=== PATIENT | female | born 1960 | race Caucasian/White ===

== ENCOUNTER 2022-10-29 10:21 | Emergency (ER) | payer OTHER, SELFPAY ==
[2022-10-29 10:24] VITALS: BP 181/76; PULSE 103; RESP 18; TEMP 36.7; O2SAT 96; BMI 33.6
--- NOTE | 2022-10-29 10:36 | XR_ITS ---
The [address] [address] Patient Name: SUKHI CADE MRN: [id number] date: 1960 Sex: F Assigned Patient Location: ER Current Patient Location: ER Accession/Order Number: [id number] Exam Date: 10/29/2022 10:48 Report Date: 10/29/2022 11:10 At the request of: MONTANA ALCARAZ Procedure: XR knee RT 4V STUDY: XR knee RT 4V, [id number] HISTORY: fall COMPARISON: None FINDINGS: No acute fracture, dislocation, or suspicious osseous lesion. Severe prepatellar soft tissue swelling. No knee joint effusion. Mild osteophytosis of the knee. Partially visualized intramedullary sajan in the distal femur. XR/XR knee RT 4V IMPRESSION: 1. No acute osseous abnormality. 2. Severe prepatellar soft tissue swelling which could represent either prepatellar bursitis or hemorrhage within the prepatellar bursa. Electronically authenticated by: TOMAS BONNER Date: 10/29/2022 11:10
--- NOTE | 2022-10-29 10:38 | ED.LOWEXI1 ---
HPI - Extremity Injury (Lower) General Chief Complaint: Extremity Injury, Lower Stated Complaint: LOWER EXTREMITY INJURY RIGHT KNEE Time Seen by Provider: 10/29/22 10:35 Source: patient Mode of arrival: Wheelchair Limitations: no limitations History of Present Illness HPI Narrative: patient here for evaluation of right knee injury. She was in her usual state of health today that she stumbled falling forward striking both her knees. She has no discomfort in her left knee or left side or extremity at all her discomfort is directly over the right knee. She was able to walk here to the emergency room but she is walking stifflegged. She has not had previous fractures of the patella or the knee. She does not have any discomfort in the thigh to hip the back or the upper extremities. She has no discomfort in the lower limb. X-rays will be done before final examination. Related Data Home Medications Medication Instructions Recorded Confirmed naproxen sodium 220 mg tablet 220 mg PO BID PRN pain 10/29/22 10/29/22 (Aleve) Allergies Allergy/AdvReac Type Severity Reaction Status Date / Time ciprofloxacin [From Cipro] AdvReac Intermediate Verified 10/29/22 10:30 Sulfa (Sulfonamide AdvReac Intermediate Verified 10/29/22 10:30 Antibiotics) Exam Narrative Exam Narrative: after x-rays completed I did examine the patient. She has a large hematoma directly over the patella but x-rays per the radiologist are negative for any acute injury. She really will not tolerate much of the physical examination and this was explained to her. Neurovascular examination to the rest the leg and foot ankle mortise are normal with no evidence of injury or neurological symptoms. The thigh is also normal. She has an appointment for her 's be seen by orthopedist Dr. Castillo next Tuesday and were going to try to make an appointment for her. We'll place her in an José Miguel wrap and knee immobilizer. It was emphasized importance of keeping ice on this knee for the next forty-eight hours intermittently. She is not taking any blood thinners. Constitutional Vital Signs, click to edit/add: Last Vital Signs Temp 98.1 F 10/29/22 10:24 Pulse 103 H 10/29/22 10:24 Resp 18 10/29/22 10:24 BP 181/76 H 10/29/22 10:24 Pulse Ox 96 10/29/22 10:24 O2 Del Method Room Air 10/29/22 10:24 Course Vital Signs Vital signs: Vital Signs Temperature 98.1 F 10/29/22 10:24 Pulse Rate 103 H 10/29/22 10:24 Respiratory Rate 18 10/29/22 10:24 Blood Pressure 181/76 H 10/29/22 10:24 Pulse Oximetry 96 10/29/22 10:24 Oxygen Delivery Method Room Air 10/29/22 10:24 Temperature 98.1 F 10/29/22 10:24 Pulse Rate 103 H 10/29/22 10:24 Respiratory Rate 18 10/29/22 10:24 Blood Pressure 181/76 H 10/29/22 10:24 Pulse Oximetry 96 10/29/22 10:24 Oxygen Delivery Method Room Air 10/29/22 10:24 Discharge Plan Discharge Chief Complaint: Extremity Injury, Lower Clinical Impression: Hematoma of right knee region Patient Disposition: Home, Self-Care Time of Disposition Decision: 11:27 Prescriptions / Home Meds: No Action naproxen sodium [Aleve] 220 mg tablet 220 mg PO BID PRN (Reason: pain) Additional Instructions: apply ice forty-eight hours/José Miguel wrap/knee brace/see Dr. Castillo next Tuesday Stand Alone Forms: Portal Instructions Referrals: ROBINSON MURRAY [Primary Care Provider] - 1 week
== END 2022-10-29 12:08 | disposition home or self-care (01) ==
PROVIDERS: Emergency Provider Emergency Medicine Emergency Medical Services; PCP Nurse Practitioner Family
DX: S80.01XA Contusion of right knee, initial encounter (principal); W01.10XA Fall on same level from slipping, tripping and stumbling with subsequent striking against unspecified object, initial encounter
CPT/HCPCS: 73564; 99283

== ENCOUNTER 2022-11-30 09:33 | Outpatient (OUT) | payer OTHER, SELFPAY ==
--- NOTE | 2022-11-30 | MR_ITS ---
The [address] [address] Patient Name: SUKHI CADE MRN: [id number] date: 1960 Sex: F Assigned Patient Location: MRI Current Patient Location: MRI Accession/Order Number: [id number] Exam Date: 11/30/2022 09:49 Report Date: 11/30/2022 11:00 At the request of: NON-STAFF PHYSICIAN Procedure: MR knee RT wo con EXAM: MR knee RT wo con REASON FOR EXAM: Right knee contusion S80.01XA. TECHNIQUE: Multiplanar, multisequence imaging of the right knee was performed without contrast COMPARISON: Plain radiographs 10/29/2022. FINDINGS: Study degraded by motion and susceptibility artifact. Laterally, the iliotibial band, fibular collateral ligament, popliteus tendon and biceps tendon are intact. The ACL is grossly intact. The lateral meniscus demonstrates grossly normal morphology and signal without tear. The lateral articular cartilage demonstrates intermediate grade chondrosis. Medially, the medial collateral ligament is intact. The PCL is intact. The medial meniscus demonstrates grossly normal morphology and signal without definite tear. Intermediate grade chondrosis of the medial compartment. The extensor mechanism is intact. Thickening and intermediate signal of the patella tendon is consistent with tendinosis. Mild edema in the superior lateral aspect of Hoffa's potentially reflects fat pad impingement. Low to intermediate grade chondrosis of the patellofemoral cartilage. The bone marrow signal is without fracture or osteonecrosis. Partially imaged intramedullary sajan identified. Subcutaneous edema anteriorly has significantly decreased in size with apparent prior radiograph likely representing near complete resolution of a hematoma. No joint effusion. The regional musculature is unremarkable. MR/MR knee RT wo con IMPRESSION: 1. Study mildly degraded by motion and susceptibility artifact. 2. Possible changes from intramedullary sajan fixation of the femur, incompletely imaged. 3. Near complete resolution of probable hematoma in the prepatellar subcutaneous tissues. 4. Moderate tricompartmental chondrosis. 5. Grossly intact menisci, cruciate and collateral ligaments. Electronically authenticated by: YUKI LOUIS Date: 11/30/2022 11:00
== END 2022-11-30 09:34 | disposition home or self-care (01) ==
LOC: MRI 09:35
PROVIDERS: PCP Nurse Practitioner Family
DX: S80.01XA Contusion of right knee, initial encounter (principal)
CPT/HCPCS: 73721

== ENCOUNTER 2023-03-12 11:14 | Emergency (ER) | payer OTHER, SELFPAY ==
[2023-03-12 11:18] VITALS: BP 172/80; PULSE 82; RESP 18; O2SAT 95; BMI 31.2
--- NOTE | 2023-03-12 11:58 | ED_ITS ---
HPI - Back Pain/Injury General Chief Complaint: Back Pain/Injury Stated Complaint: BACK PAIN Time Seen by Provider: 03/12/23 11:30 Source: patient Mode of arrival: walk-in Limitations: no limitations History of Present Illness HPI Narrative: The patient is coming to the ER with a 2 days history of low back pain , pain in the lower back associated with movement mostly sitting up there was no nausea no vomiting no other complaints. No radiation down her legs and no numbness tingling or weakness or any continence of urine or stool Related Data Home Medications Medication Instructions Recorded Confirmed naproxen sodium 220 mg tablet 220 mg PO BID PRN pain 10/29/22 03/12/23 (Aleve) Previous Rx's Medication Instructions Recorded acetaminophen 650 mg 650 mg PO Q8H PRN pain #20 tabs 03/12/23 tablet,extended release (Tylenol 8 Hour) orphenadrine citrate 100 mg 100 mg PO BID PRN muscle spasm #10 03/12/23 tablet,extended release tabs prednisone 50 mg tablet 50 mg PO DAILY 5 days #5 tabs 03/12/23 Allergies Allergy/AdvReac Type Severity Reaction Status Date / Time ciprofloxacin [From Cipro] AdvReac Intermediate Verified 10/29/22 10:30 Sulfa (Sulfonamide AdvReac Intermediate Verified 10/29/22 10:30 Antibiotics) Review of Systems ROS Status of ROS 10 or more systems reviewed and unremark able except as noted in history and below PFSH PFSH Social History Smoking status: Former smoker Exam Narrative Exam Narrative: Nurses notes and vital signs reviewed and patient is not hypoxic. General: Well-appearing and in no apparent distress. Skin: Warm, dry, no pallor noted. No rash. Head: Normocephalic, atraumatic. Neck: Supple, non-tender. Eye: Pupils are equal, round and EOMI. No scleral icterus. Ears, Nose, Mouth, and Throat: TM are clear, no nasal mucosal hypertrophy. Oral mucosa is moist, no posterior oropharynx erythema, uvula is mid-line Cardiovascular: Regular Rate and Rhythm without murmur, gallop or rub. Respiratory: No accessory muscle use or respiratory distress. Lungs are clear to auscultation, no wheezing, rales or rhonchi Chest Wall: no tenderness Back: No midline thoracic or lumbar vertebral tenderness. The patient have no midline tenderness she have right paraspinal muscle tenderness mostly toward the buttock area Musculoskeletal: normal ROM, no calf or popliteal tenderness, no lower extremit y edema/swelling GI: Abdomen is soft, non-distended. Normal bowel sounds. No masses appreciated. No tenderness to palpation. No rebound, guarding, or rigidity noted. Neurological: A&O x4. No cranial nerve dysfunction observed. No truncal ataxia. Moves all extremities. Sensation intact. Psychiatric: Cooperative and interactive. Normal mood and affect. Constitutional Vital Signs, click to edit/add: Last Vital Signs Temp 97.6 F 03/12/23 12:00 Pulse 82 03/12/23 11:18 Resp 18 03/12/23 11:18 BP 172/80 H 03/12/23 11:18 Pulse Ox 95 03/12/23 11:18 Course Vital Signs Vital signs: Vital Signs Pulse Rate 82 03/12/23 11:18 Respiratory Rate 18 03/12/23 11:18 Blood Pressure 172/80 H 03/12/23 11:18 Pulse Oximetry 95 03/12/23 11:18 Temperature 97.6 F 03/12/23 12:00 Pulse Rate 82 03/12/23 11:18 Respiratory Rate 18 03/12/23 11:18 Blood Pressure 172/80 H 03/12/23 11:18 Pulse Oximetry 95 03/12/23 11:18 MDM - Back Pain/Injury MDM Narrative Medical decision making narrative: Right now the patient presentation is mostly secondary to lower back pain mostly muscular as it could be induced with tenderness on palpation .the patient have no alarming symptoms to her back pain Right now the patient also asks about work because she have to work today and tomorrow and I did tell her that she need to rest. The patient will be treated in the ER with Toradol discharged home with prednisone as well as Tylenol and Norflex The patient is to follow up with primary care physician in next 2-3 days or to return to the emergency department should any of the signs or symptoms worsen or new symptoms develop. The patient agrees with the following Diagnosis and Treatment plan and the patient will be discharged home. Discharge Plan Discharge Chief Complaint: Back Pain/Injury Clinical Impression: Back sprain Patient Disposition: Home, Self-Care Time of Disposition Decision: 11:59 Condition: Good Mode of Transportation: Private Vehicle Prescriptions / Home Meds: New prednisone 50 mg tablet 50 mg PO DAILY 5 Days Qty: 5 0RF acetaminophen [Tylenol 8 Hour] 650 mg tablet extended release 650 mg PO Q8H PRN (Reason: pain ) Qty: 20 0RF orphenadrine citrate 100 mg tablet extended release 100 mg PO BID PRN (Reason: muscle spasm) Qty: 10 0RF No Action naproxen sodium [Aleve] 220 mg tablet 220 mg PO BID PRN (Reason: pain) Instructions: Acute Low Back Pain (ED) Stand Alone Forms: Portal Instructions Referrals: ROBINSON MURRAY [Primary Care Provider] - 1 week Ramiro Castillo MD [Physician] - 1 week Discharge Date/Time: 03/12/23 12:16
[2023-03-12 12:00] VITALS: TEMP 36.4
[2023-03-12] MEDS: KETOROLAC TROMETHAMINE 30 MG/ML VIAL IM (12:00)
[2023-03-12] MEDS: ORPHENADRINE 60 MG/ 2 ML VIAL 30 MG IM (12:08)
== END 2023-03-12 12:16 | disposition home or self-care (01) ==
PROVIDERS: Emergency Provider Emergency Medicine; PCP Nurse Practitioner Family
DX: S33.5XXA Sprain of ligaments of lumbar spine, initial encounter (principal); X58.XXXA Exposure to other specified factors, initial encounter; Z79.899 Other long term (current) drug therapy; Z87.891 Personal history of nicotine dependence
CPT/HCPCS: 96372; 99284; J1885; J2360

== ENCOUNTER 2023-10-26 08:02 | Outpatient (OUT) | payer OTHER, SELFPAY ==
[2023-10-26 08:30] LABS: Basophils Percent Auto 0.5 % (0.2-2.0); Eosinophils Absolute Auto 0.2 10^3/uL (0.0-0.7); Eosinophils Percent Auto 1.8 % (0.9-7.0); Hematocrit 39.9 % (36.0-48.0); Hemoglobin 13.5 g/dL (12.0-16.0); Immature Granulocytes Abs Auto 0.02 10^3/uL (0.00-0.03); Immature Granulocytes Pct Auto 0.2 % (0.0-0.5); Lymphocytes Percent Auto 24.1 % (20.5-60.0); Mean Corpuscular HGB Conc 33.8 g/dL (29.9-35.2); Mean Corpuscular Hemoglobin 28.8 pg (26.7-34.0); Mean Corpuscular Volume 85.1 fL (81.0-99.0); Mean Platelet Volume 8.4 fL (9.5-13.5); Monocytes Absolute Auto 0.6 10^3/uL (0.3-0.8); Monocytes Percent Auto 7.1 % (1.7-12.0); Neutrophils Absolute Auto 5.4 10^3/uL (1.4-6.5); Neutrophils Percent Auto 66.3 % (43.0-75.0); Platelet Count 281 10^3/uL (150-450); Red Blood Count 4.69 10^6/uL (4.20-5.40); Red Cell Distribution Width 13.1 % (11.0-15.0); White Blood Count 8.1 10^3/uL (4.0-11.0)
--- NOTE | 2023-10-26 08:30 | MM_ITS ---
Patient Name: SUKHI CADE MR#: [id number] : 1960 Exam Date: 10/26/2023 Ordering Doctor: DRE DIN[facility] RADIOLOGY REPORT PROCEDURE: MM TOMOSYNTHESIS SCREENING BI COMPARISON: MG MAMM SCREEN JERRY W CAD, 03/17/2017. INDICATIONS: Screening Calculator Name NCI Breast Cancer Risk Assessment Tool 5 Year Breast Cancer Risk 2.30% Lifetime Breast Cancer Risk 9.50% Personal Breast Cancer No Personal Ovarian Cancer No Treatments None Family Cancers None LOCATION: [facility] BREAST COMPOSITION: The breasts are extremely dense, which lowers the sensitivity of mammography. FINDINGS: DIAGNOSTIC CATEGORY 2--BENIGN FINDING. NO CHANGE FROM COMPARISON. Scattered benign-appearing calcifications are present. Scattered benign-appearing lymph nodes are present. RIGHT BREAST: No significant suspicious finding. LEFT BREAST: No significant suspicious finding. RECOMMENDATIONS: ROUTINE MAMMOGRAM AND CLINICAL EVALUATION IN 12 MONTHS. PLEASE NOTE: A NORMAL MAMMOGRAM DOES NOT EXCLUDE THE POSSIBILITY OF BREAST CANCER. A CLINICALLY SUSPICIOUS PALPABLE LUMP SHOULD BE BIOPSIED. Dictated by: Tj Zaidi MD on 10/26/2023 at 12:43 Approved by: Tj Zaidi MD on 10/26/2023 at 12:44
[2023-10-26 10:21] LABS: Alanine Aminotransferase 22 U/L (14-59); Albumin Globulin Ratio 1.6; Albumin Level 4.1 g/dL (3.4-5.0); Alkaline Phosphatase 88 U/L (46-116); Anion Gap 15.9; Aspartate Amino Transferase 18 U/L (15-37); BUN Creatinine Ratio 21.4; Bilirubin Total 0.5 mg/dL (0.2-1.0); Calcium 9.1 mg/dL (8.5-10.1); Carbon Dioxide 24.3 mmol/L (21.0-32.0); Chloride 104 mmol/L (98-107); Chol HDL Ratio 4.2; Cholesterol 197 mg/dL (<=200); Estimated GFR (African America >60 (>=60); Estimated GFR (Non-African Ame >60 (>=60); Globulin 2.6 g/dL; Glucose 97 mg/dL (74-106); HDL Cholesterol 47 mg/dL (40-60); LDL Cholesterol Calculated 121.8 mg/dL; Potassium 4.2 mmol/L (3.5-5.1); Sodium 140 mmol/L (136-145); TSH W/ REFLEX FT4 1.945 uIU/mL (0.358-3.740); Total Protein 6.7 g/dL (6.4-8.2); Triglycerides 141 mg/dL (<=150); VLDL CHOLESTEROL 28.2 mg/dL
[2023-10-26 10:45] LABS: Estimated Average Glucose 108 mg/dL; Glycohemoglobin A1C 5.4 % (4.5-6.2)
== END 2023-10-26 08:03 | disposition home or self-care (01) ==
LOC: LAB 08:04
DX: Z00.00 Encounter for general adult medical examination without abnormal findings (principal); Z12.31 Encounter for screening mammogram for malignant neoplasm of breast
CPT/HCPCS: 36415; 77063; 77067; 80053; 80061; 83036; 84443; 85025